=== PATIENT | female | born 1980 | race Caucasian/White ===

== ENCOUNTER 2018-04-18 19:38 | Emergency (ER) | payer BC ==
[~2018-04-18] VITALS: Ht 170.2 cm; Wt 86.0 kg
[~2018-04-18 19:38] MED LIST: AZITHROMYCIN 250 MG TABLET; CHLORZOXAZONE 500 MG TABLET; CLONIDINE 0.2 MG; HYDROCHLOROTHIAZIDE 25 MG TAB; MOVANTIK 25 MG; ONDA8TAB9 PO; ONDANSETRON TAB 4MG ODT; OXYCODONE 30 MG; PROMETHAZINE; RISPERIDONE 1 MG TABLET; SYNTHROID 50 MCG
[2018-04-18 20:20] LABS: BASOPHILS # (AUTO) 0.1 X10'3 (0-0.2); EOSINOPHILS # (AUTO) 0.1 X10'3 (0-0.9); EOSINOPHILS % (AUTO) 1.8 % (0-6); HEMATOCRIT 37.2 % (35.0-45.0); HEMOGLOBIN 12.9 g/dl (12.0-16.0); LYMPHOCYTES # (AUTO) 2.1 X10'3 (1.1-4.8); LYMPHOCYTES % (AUTO) 27.3 % (21-51); MEAN CORPUSCULAR HEMOGLOBIN 30.9 PG (27.0-31.0); MEAN CORPUSCULAR HGB CONC 34.5 % (33.0-36.5); MEAN CORPUSCULAR VOLUME 89.6 FL (78-98); MEAN PLATELET VOLUME 8.9 FL (7.4-10.4); MONOCYTES # (AUTO) 0.4 X10'3 (0-0.9); MONOCYTES % (AUTO) 5.3 % (2-12); NEUTROPHILS # (AUTO) 5.1 X10'3 (1.8-7.7); NEUTROPHILS % (AUTO) 64.6 % (42-75); PLATELET COUNT 199 X10'3 (140-440); RED BLOOD COUNT 4.16 X10'6 (4.20-5.60); RED CELL DISTRIBUTION WIDTH 13.3 % (11.5-14.5); WHITE BLOOD COUNT 7.8 X10'3 (4.5-11.0)
[2018-04-18 20:31] LABS: INR 0.9 INR; PROTHROMBIN TIME 9.8 SECONDS (9.0-12.0)
[2018-04-18 20:36] LABS: ALANINE AMINOTRANSFERASE 68 U/L (12-78); ALBUMIN 3.5 G/DL (3.4-5.0); ALKALINE PHOSPHATASE 79 IU/L (46-116); ANION GAP 9 (8-16); ASPARTATE AMINO TRANSFERASE 77 U/L (10-37); BILIRUBIN,TOTAL 0.2 MG/DL (0.1-1.0); BLOOD UREA NITROGEN 5 MG/DL (7-18); BUN/CREATININE RATIO 4.7 (6.6-38.0); CALCIUM 8.3 MG/DL (8.5-10.1); CHLORIDE 103 MMOL/L (99-107); CREATININE 1.07 MG/DL (0.40-0.90); GLUCOSE 101 MG/DL (70-104); POTASSIUM 3.8 MMOL/L (3.5-5.1); SODIUM 139 MMOL/L (135-145); TOTAL CARBON DIOXIDE 27.1 MMOL/L (24-32); TOTAL PROTEIN 7.1 G/DL (6.4-8.2); eGFR 58 ML/MIN
[2018-04-18] MEDS ORDERED: ondansetron/PF 4mg/2ml inj IV ONE ×2 (20:55→21:55)
[2018-04-18] MEDS ORDERED: morphine 4 MG/ML inj SYRINge IV ONE (20:55)
[2018-04-18] MEDS ORDERED: normal saline 1000ml 1,000 ML IV ONE ×2 (20:55)
[2018-04-18] MEDS ORDERED: famotidine/PF 10 mg/ml inj IV ONE (21:55)
[2018-04-18] MEDS ORDERED: CLIN300C54 PO (22:26)
[2018-04-18] MEDS ORDERED: ONDA4TAB9 PO (22:26)
[2018-04-18 22:52] VITALS: BP 130/94
== END 2018-04-18 22:54 | disposition home or self-care (01) ==
LOC: ER 19:38
DX: R59.1 Generalized enlarged lymph nodes (principal); R11.2 Nausea with vomiting, unspecified; R19.7 Diarrhea, unspecified; R10.84 Generalized abdominal pain; R05 Cough; R09.89 Other specified symptoms and signs involving the circulatory and respiratory systems; I10 Essential (primary) hypertension; K21.9 Gastro-esophageal reflux disease without esophagitis; E03.9 Hypothyroidism, unspecified; Z90.49 Acquired absence of other specified parts of digestive tract; Z88.1 Allergy status to other antibiotic agents; Z88.0 Allergy status to penicillin; Z88.2 Allergy status to sulfonamides; Z88.8 Allergy status to other drugs, medicaments and biological substances
CPT/HCPCS: 36415; 80053; 85025; 85610; 93005; 96361; 96374; 96375; 96376; 99285; A6449; J2270; J2405; J3490; J7030

== ENCOUNTER 2020-07-13 08:45 | Emergency (ER) | payer BC ==
[~2020-07-13] VITALS: Ht 170.2 cm; Wt 100.0 kg
[2020-07-13 10:00] VITALS: BP 185/128
== END 2020-07-13 10:07 | disposition home or self-care (01) ==
LOC: ER 08:45
DX: U07.1 COVID-19 (principal); R50.9 Fever, unspecified; R05 Cough; R11.0 Nausea; I10 Essential (primary) hypertension; K21.9 Gastro-esophageal reflux disease without esophagitis; E03.9 Hypothyroidism, unspecified; F41.9 Anxiety disorder, unspecified; Z87.11 Personal history of peptic ulcer disease; Z90.49 Acquired absence of other specified parts of digestive tract; Z98.890 Other specified postprocedural states; Z88.1 Allergy status to other antibiotic agents; Z88.0 Allergy status to penicillin; Z88.2 Allergy status to sulfonamides; Z88.8 Allergy status to other drugs, medicaments and biological substances; Z79.899 Other long term (current) drug therapy
CPT/HCPCS: 36415; 87635; 99283

== ENCOUNTER 2020-10-17 15:19 | Emergency (ER) | payer BC ==
[~2020-10-17] VITALS: Ht 170.2 cm; Wt 110.6 kg
[2020-10-17 15:24] VITALS: BP 196/114
== END 2020-10-17 16:22 | disposition home or self-care (01) ==
LOC: ER 15:20
DX: R22.0 Localized swelling, mass and lump, head (principal); J02.9 Acute pharyngitis, unspecified; I10 Essential (primary) hypertension; K21.9 Gastro-esophageal reflux disease without esophagitis; E03.9 Hypothyroidism, unspecified; F41.9 Anxiety disorder, unspecified; Z90.49 Acquired absence of other specified parts of digestive tract; Z88.8 Allergy status to other drugs, medicaments and biological substances; Z79.899 Other long term (current) drug therapy
CPT/HCPCS: 99281